=== PATIENT | female | born 1945 | race American Indian/Alaskan Native ===

== ENCOUNTER 2016-06-05 14:09 | Outpatient (CLI) | payer BC ==
--- NOTE | 2016-06-05 15:09 | XRay Report ---
X-RAY CERVICAL SPINE WITH OBLIQUES FIVE VIEWS: 06/05/16 14:09:00 CLINICAL: Cervical radiculitis. FINDINGS: Extensive degenerative disease with narrowing of the disc spaces and anterior posterior osteophytes at C4-5 and C5-6. Grade I C4-5 and C5-6 retrolisthesis. Large anterior osteophytes at C3-4. Normal odontoid and C1. Bilateral uncal osteophytes and moderate bilateral neural foraminal narrowing at C4-5 and C5-6. IMPRESSION: Extensive degenerative change from C3-4 through C5-6.Grade I C4-5 and C5-6 retrolisthesis and moderate bilateral neural foraminal narrowing at C4-5 and C5-6. Recommend flexion and extension views to evaluate for instability at C4-5 and C5-6.
== END 2016-06-05 14:10 | disposition home or self-care (01) ==
LOC: SPVIMAG 14:09
PROVIDERS: ATTEND Internal Medicine
DX: M54.12 Radiculopathy, cervical region (principal); M25.78 Osteophyte, vertebrae
CPT/HCPCS: 72050